=== PATIENT | male | born 1940 | race Caucasian/White ===

== ENCOUNTER → 2017-07-23 | Outpatient (CLI) | payer MEDICARE, OTHER ==
[~2017-07-23] MED LIST: OMNIPAQUE 350 MG/ML, 100ML BOTTLE ONE
== END | disposition home or self-care (01) ==
LOC: CFH 11:46
PROVIDERS: ATTEND Internal Medicine Gastroenterology
DX: K86.3 Pseudocyst of pancreas (principal); N28.1 Cyst of kidney, acquired; J98.4 Other disorders of lung
CPT/HCPCS: 74177; Q9967

== ENCOUNTER → 2017-09-06 | Outpatient (CLI) | payer MEDICARE, OTHER | END | disposition home or self-care (01) | LOC: RAD 16:51 | PROVIDERS: ATTEND Family Medicine | DX: R90.82 White matter disease, unspecified (principal); I10 Essential (primary) hypertension | CPT/HCPCS: 70450 ==